=== PATIENT | female | born 1955 | race Caucasian/White ===

== ENCOUNTER → 2016-08-07 | Outpatient (CLI) | payer BC ==
[~2016-08-07] MED LIST: ADULT LOW DOSE81 MG PO; ASPIR 8181 MG PO; AUBAGIO14 MG PO; BACTROBAN NASAL1 G1 TOP; COZAAR100 MG PO; DILTIAZEM 12HR120 MG PO; DILTIAZEM 24HR120 MG PO; FEOSOL325 MG PO; FEXOFENADINE HC60 MG PO; FLOVENT DISKUS50 MCG INH; FLUOXETINE HCL60 MG PO; FLUTICASONE PRO16 GM; FOLIC ACID 1 MG1 MG PO; FOLIC ACID1 MG PO; GLUCOPHAGE 500500 MG PO; HYDROCHLOROTHIA25 MG PO; HYDROCHLOROTHIA50 MG PO; IBUPROFEN800 MG PO; IMDUR ER TAB 3030 MG PO; LORTAB 7.5-3251 EACH PO; METFORMIN HCL500 MG PO; METHOCARBAMOL500 MG PO; METHYLPREDNISOLO4 MG PO; MIRALAX17 GM PO; MONTELUKAST SOD10 MG PO; NEURONTIN 300300 MG PO; NITROSTAT 0.40.4 MG SL; PERCOCET 10-321 EACH PO; PHENERGAN 25 MG25 M1 PO; POLYETHYLENE GLY1 GM MC; PROMETHAZINE HC25 M1 PO; RANITIDINE HCL150 M1 PO; RANITIDINE HCL150 MG PO; ROBAXIN500 MG PO; SIMVASTATIN20 MG PO; SYMMETREL 100100 MG PO; TECFIDERA240 MG PO; TRAZODONE HCL100 MG PO; VALACYCLOVIR1000 MG PO; VIT D3 PO; VITAMIN D250000 UNIT PO; VITAMIN D5000 UNIT PO; XARELTO20 MG PO; ZOFRAN ODT8 MG PO; ZOFRAN8 MG PO; [UNRECOGNIZED DRUG - OTHER] PO
== END ==
LOC: EMI 10:58
DX: G35 Multiple sclerosis (principal); R90.89 Other abnormal findings on diagnostic imaging of central nervous system
CPT/HCPCS: 70553; A9577; J7050

== ENCOUNTER → 2016-08-07 | Outpatient (CLI) | payer BC ==
[2016-08-07 10:53] LABS: HEMOGLOBIN 13.6 gm/dl (12.3-15.3); RED BLOOD COUNT 4.5 M/UL (4.00-5.10)
[2016-08-07 11:11] LABS: BUN/CREATININE RATIO 16 (0-10)
== END ==
LOC: LAB 10:07
PROVIDERS: Psychiatry & Neurology Clinical Neurophysiology
DX: G35 Multiple sclerosis (principal)
CPT/HCPCS: 36415; 80053; 85025

== ENCOUNTER → 2016-08-10 | Outpatient (CLI) | payer BC | LOC: HEART 5 08-09 08:00 | DX: R00.2 Palpitations (principal); I10 Essential (primary) hypertension ==

== ENCOUNTER → 2016-10-16 | Outpatient (CLI) | payer BC | LOC: CT 09-15 10:00 → MRI 09-21 13:45 → CT 10-11 09:30 | DX: R10.9 Unspecified abdominal pain (principal); J30.9 Allergic rhinitis, unspecified; M54.9 Dorsalgia, unspecified; N28.1 Cyst of kidney, acquired; M51.36 Other intervertebral disc degeneration, lumbar region; M51.37 Other intervertebral disc degeneration, lumbosacral region; M51.26 Other intervertebral disc displacement, lumbar region; M51.27 Other intervertebral disc displacement, lumbosacral region | CPT/HCPCS: 36415; 72158; 82565; 84520; A9577; J7050; Q9962 ==

== ENCOUNTER → 2020-08-10 | Outpatient (CLI) | payer BC ==
[~2020-08-10] MED LIST changes: +ATORVASTATIN CA20 MG PO; +BACLOFEN10 MG PO; +CATAPRES 0.1MG0.1 MG PO; +CELEXA40 MG PO; +DICLOFENAC SODIUM; +DILTIAZEM 24HR360 MG PO; +DITROPAN 5 MG TA5 MG PO; -FEXOFENADINE HC60 MG PO; +GLUCOPHAGE850 MG PO; +HYDRALAZINE HCL25 MG PO; -HYDROCHLOROTHIA25 MG PO; +LOSARTAN POTAS100 MG PO; +METOPROLOL TART25 MG PO; +NITROFURANTOIN100 MG PO; +NITROGLYCERIN0.4 MG SL; +NORCO 10-325 T1 EACH PO; +NYAMYC60 GM TP; +PHENAZOPYRIDIN200 MG PO; +PROVIGIL200 MG PO; +PROZAC20 MG PO; +QUESTRAN LIGHT 44 GM PO; +TOPAMAX25 MG PO; +TYLENOL 500 MG500 MG PO; -VIT D3 PO; +VITAMIN D2 PO
== END ==
LOC: MAMO 09:56 → EXRD 09:56 → MAMO 11:30
DX: Z12.31 Encounter for screening mammogram for malignant neoplasm of breast (principal); M85.88 Other specified disorders of bone density and structure, other site
CPT/HCPCS: 77063; 77067; 77080

== ENCOUNTER → 2020-11-01 | Outpatient (CLI) | payer BC ==
[2020-11-01 13:08] LABS: ADENOVIRUS F 40/41 Not Detected (Negative); ASTROVIRUS Not Detected (Negative); CAMPYLOBACTER Not Detected (Negative); CLOSTRIDIUM DIFFICILE TOX A/B Not Detected (Negative); CRYPTOSPORIDIUM Not Detected (Negative); E.COLI 0157 Not Detected (Negative); ENTAMOEBA HISTOLYTICA Not Detected (Negative); ENTEROAGGREGATIVE E.COLI (EAEC Not Detected (Negative); ENTEROPATHOGENIC E.COLI (EPEC) Not Detected (Negative); ENTEROTOXIGENIC E.COLI (ETEC) Not Detected (Negative); GIARDIA LAMBLIA Not Detected (Negative); NOROVIRUS GI/GII Not Detected (Negative); PLESIOMONAS SHIGELLOIDES Not Detected (Negative); ROTOVIRUS A Not Detected (Negative); SALMONELLA Not Detected (Negative); SAPOVIRUS Not Detected (Negative); SHIG/ENTEROINVAS.ECOLI (EIEC) Not Detected (Negative); SHIGA-LIK TOX.PRO.E.COLI (STEC Not Detected (Negative); VIBRIO Not Detected (Negative); VIBRIO CHOLERAE Not Detected (Negative); YERSINIA ENTEROCOLITICA Not Detected (Negative)
== END ==
LOC: LBRF 12:12
PROVIDERS: Nurse Practitioner Pediatrics
DX: R10.9 Unspecified abdominal pain (principal); R19.7 Diarrhea, unspecified
CPT/HCPCS: 87507

== ENCOUNTER → 2020-11-05 | Day surgery (SDC) | payer BC, SELFPAY | END | disposition home or self-care (01) | LOC: OR 06:54 | PROVIDERS: Surgery | PROC: 0DJ08ZZ Inspection of Upper Intestinal Tract, Via Natural or Artificial Opening Endoscopic (ICD-10-PCS; principal; 2020-11-05 10:10) | PROC: 0DBN8ZZ Excision of Sigmoid Colon, Via Natural or Artificial Opening Endoscopic (ICD-10-PCS; 2020-11-05 10:10) | DX: D12.5 Benign neoplasm of sigmoid colon (principal); K59.00 Constipation, unspecified; K21.9 Gastro-esophageal reflux disease without esophagitis; I10 Essential (primary) hypertension; E11.42 Type 2 diabetes mellitus with diabetic polyneuropathy; E78.5 Hyperlipidemia, unspecified; I51.89 Other ill-defined heart diseases; G47.00 Insomnia, unspecified; G47.33 Obstructive sleep apnea (adult) (pediatric); M81.0 Age-related osteoporosis without current pathological fracture; I25.10 Atherosclerotic heart disease of native coronary artery without angina pectoris; E11.43 Type 2 diabetes mellitus with diabetic autonomic (poly)neuropathy; K31.84 Gastroparesis; G89.29 Other chronic pain; E66.01 Morbid (severe) obesity due to excess calories; Z68.41 Body mass index [BMI] 40.0-44.9, adult; Z20.822 Contact with and (suspected) exposure to COVID-19; Z88.0 Allergy status to penicillin; Z88.1 Allergy status to other antibiotic agents; Z79.84 Long term (current) use of oral hypoglycemic drugs; Z79.899 Other long term (current) drug therapy; Z86.010 Personal history of colon polyps | CPT/HCPCS: 82962; J2704; J7030 ==

== ENCOUNTER → 2021-10-04 | Outpatient (CLI) | payer BC | LOC: US 11:00 | DX: R59.0 Localized enlarged lymph nodes (principal) | CPT/HCPCS: 76641-LT ==

== ENCOUNTER → 2021-10-20 | Outpatient (CLI) | payer BC, OTHER | LOC: MAMO 10:08 | DX: N64.4 Mastodynia (principal) | CPT/HCPCS: 77065; G0279 ==